=== PATIENT | female | born 1985 | race Caucasian/White ===

== ENCOUNTER 2016-11-29 04:00 | Inpatient (IN) | payer OTHER ==
--- NOTE | ~2016-11-29 | PA ---
Unit #: [id number] #: [id number] Patient: SP SANTOS [id number] [facility] [address] [place] [address] [id number] I MR#: [id number] NAME: SP SANTOS ROOM: P183 Age: 31 Sex: F Admission Date: 11/29/2016 : 1985 Date of Assessment: 11/30/2016 Attending Physician: Kranthi Haynes M.D. Admitting Physician: Kranthi Haynes M.D. Primary Care Physician: Primary Care Physician No PSYCHIATRIC ASSESSMENT INFORMANTS The patient's reliability, fair; chart reliability, good. CHIEF COMPLAINT Suicidal ideation. HISTORY OF PRESENT ILLNESS Ms. Sp Santos is a 31-year-old female, presented with the above-mentioned complaint. The patient threatening to hurt herself, feels like hurting self, no specific plan, feeling sad and depressed, feeling of hopelessness and worthlessness. The patient has a history of previous treatment, details unknown at this time. The patient has a son 4, daughter 10. Currently, her family is taking care of the kids. The patient denied any psychotic symptom or any homicidal ideation. Sister reported that the patient told her that she wanted to blow her brains. The patient confirmed the statement. The patient reports drinking one-fifth Kathy a day and 12 beers. The patient denied any use of any street drugs. The patient needing inpatient admission at this time for psychiatric stabilization. PAST PSYCHIATRIC HISTORY Remarkable for history of previous treatment, details unknown at this time. FAMILY HISTORY AND SOCIAL HISTORY The patient has a good support system. No history of any abuse. MEDICAL HISTORY Unremarkable for any chronic medical illness. Musculoskeletal; muscle strength and tone, no atrophy or abnormal movement. Gait normal. MEDICATION HISTORY None. ALLERGIES No known drug allergies. SUBSTANCE ABUSE HISTORY The patient reported tobacco use, age of onset 9; alcohol, age of onset 11. The patient reported history of blackout. No history of any HIV, hepatitis, or withdrawal symptom. No history of any IV drug use. REVIEW OF SYSTEMS HEENT: Eyes, clear. Ears, nose, mouth, and throat; clear. Unit #: [id number] #: [id number] Patient: SP SANTOS CARDIOVASCULAR: Unremarkable. RESPIRATORY: Unremarkable. GI: Unremarkable. : Unremarkable. SKIN: Unremarkable. LYMPH NODE: Unremarkable. NEUROLOGIC: Unremarkable. ENDOCRINE: Unremarkable. HEMATOLOGIC: Unremarkable. ALLERGIC/IMMUNOLOGIC: Unremarkable. MUSCULOSKELETAL: Muscle strength and tone, no atrophy or abnormal movement. Gait normal. MENTAL STATUS EXAMINATION CONSTITUTIONAL: Measurement of vital signs; temperature 98.7, pulse 76, respirations 14, oxygen saturation 99%, and blood pressure 134/84. Height 5 feet 5 inches, weight 176 pounds. GENERAL APPEARANCE: The patient dressed casually. The patient did not show any facial deformity. MUSCULOSKELETAL: Please see above. PSYCHIATRIC EXAMINATION Description of speech; regular rate, normal volume, normal articulation, coherent. Description of thought process, goal directed. Description of association, intact. Description of abnormal psychotic thinking; the patient denied any hallucination or delusions, but mood lability, substance abuse, and depression. Description of the patient's judgment, concerning everyday activity, poor. Social situation, poor. Concerning psychiatric condition, poor. Complete mental status examination; oriented in time, place, and person. Recent and remote memory, fair. Attention span and concentration, fair. Language, able to name object and repeat phrases. Fund of knowledge, aware of current event and passive vocabulary intact. Mood and affect, sad and dysphoric. Insight and judgment, fair to poor. ASSETS AND LIABILITIES Assets; the patient is articulate and able to take care of her ADL. Liability, history of depression and substance abuse. ADMITTING DIAGNOSES Psychiatric: 1. Major depressive disorder, recurrent, F33.2, moderate to severe. 2. Alcohol use disorder, severe, F10.20. Secondary diagnosis: Deferred. Medical diagnosis: None. Stressors: Psychosocial stressors. PSYCHIATRIC PLAN AND TREATMENT GOAL 1. Advised to admit the patient on the inpatient unit. Provide safe, supportive, and structured environment. 2. Ordered labs; CBC, CMP, UA, and UDS. 3. Advised to consider medication such as Celexa and Desyrel for sleep and mood symptoms. Precaution for self-harm, detox protocol, and detox monitoring. 4. The patient to attend all the programing on the inpatient unit. Unit #: [id number] #: [id number] Patient: SP SANTOS Treatment goal to attain euthymic mood, gain insight into her problem, and learn coping skills. DISCHARGE PLAN Plan to stabilize the patient and consider followup in outpatient program. ESTIMATED LENGTH OF STAY 5 days. Dictated by... Sacha Nagel/vero TD: 12/01/2016 01:35 JOB #: [id number] PSYCHIATRIC ASSESSMENT Page 1 of 1 X Kranthi Haynes MD PSYCHIATRIC ASSESSMENT
--- NOTE | ~2016-11-29 | DS ---
Unit #: [id number] #: [id number] Patient: SP SANTOS [id number] [facility] [address] [place] [address] [id number] MR#: [id number] NAME: SP SANTOS ROOM: [facility] Age: 31 Sex: F Admission Date: 11/29/2016 : 1985 Discharge Date: 12/01/2016 Attending Physician: Kranthi Haynes M.D. Primary Care Physician: Primary Care Physician No DISCHARGE SUMMARY REASON FOR ADMISSION Suicidal ideation. DIAGNOSTIC STUDIES LABORATORY RESULTS: Unremarkable. HOSPITAL COURSE The patient was admitted to inpatient unit on 11/29/2016 and discharged on 12/01/2016. The patient was treated on the inpatient unit with group therapy, individual therapy, medication management. The patient responded well with the above modalities of treatment and medication management, Celexa and Desyrel. Subsequently, the patient was discharged with a plan to follow up in outpatient program. DISCHARGE MEDICATIONS Celexa 20 mg daily for depression, Desyrel 50 mg at bedtime for sleep. DISCHARGE DIAGNOSES Psychiatric: 1. Major depressive disorder, recurrent, moderate, F33.2. 2. Alcohol use disorder, moderate, F10.20. Secondary diagnosis: Deferred. Medical diagnosis: None. Stressors: Psychosocial stressors. DISCHARGE INSTRUCTIONS The patient to follow up in outpatient clinic as per high school social science teacher. CONDITION ON DISCHARGE The patient was pleasant and cooperative. Denied any psychotic symptom or any suicidal ideation. PROGNOSIS Guarded. DIET AND ACTIVITY As tolerated. Dictated by... Kranthi Haynes M.D. Unit #: [id number] #: [id number] Patient: SP SANTOS SZC/modl TD: 12/02/2016 01:10 JOB #: [id number] DISCHARGE SUMMARY Page 1 of 1 X Kranthi Haynes MD X DISCHARGE SUMMARY
--- NOTE | ~2016-11-29 | HP ---
Unit #: [id number] #: [id number] Patient: SP SANTOS [id number] [place] [address] [id number] MR#: [id number] NAME: SP SANTOS ROOM: P183 Age: 31 Sex: F Admission Date: 11/29/2016 : 1985 Attending Physician: Kranthi Haynes M.D. Admitting Physician: Kranthi Haynes M.D. Primary Care Physician: Primary Care Physician No HISTORY AND PHYSICAL HISTORY OF PRESENT ILLNESS The patient is a 31-year-old female admitted to [facility] on 11/29/2016 for suicidal ideations and to detox from alcohol. PAST MEDICAL HISTORY Irregular heart beat PAST SURGICAL HISTORY SOCIAL HISTORY She is unemployed. She lives with her children. She smokes one pack of cigarettes daily. Drinks 12 beers plus Jagermeister daily. FAMILY MEDICAL HISTORY Noncontributory. ALLERGIES No known drug allergies. CURRENT MEDICATIONS Patient is not on any home medications. REVIEW OF SYSTEMS CONSTITUTIONAL: No fever or chills. HEENT: Denies any sore throat, ear pain or runny nose. CARDIOVASCULAR: Denies chest pain, irregular heart rhythm or palpitations. CHEST: Denies shortness of breath or cough. No hemoptysis. GASTROINTESTINAL: Denies nausea, vomiting, diarrhea or chronic constipation. ENDOCRINE: Denies history of increased thirst or urination. No recent significant weight loss or gain. GENITOURINARY: Denies dysuria, frequency, or hematuria. SKIN: Denies any rashes. HEMATOLOGIC: Denies history of increased bleeding or bruising. MUSCULOSKELETAL: Denies any hot, swollen joints. No generalized muscle pain. NEUROLOGIC: Denies problems with vision or speech. No frequent, severe headaches. No numbness, tingling or weakness in any extremities. Denies loss of bladder or bowel control. PHYSICAL EXAM GENERAL: She is awake, alert and oriented in no acute distress. Unit #: [id number] #: [id number] Patient: SP SANTOS VITAL SIGNS: Temperature 98.1, heart rate 98, respiration 18, blood pressure 121/84. HEIGHT: 5'5". WEIGHT: 176 pounds. SKIN: Warm and dry without rash or lesion. HEENT: Normocephalic. TMs not viewed. Oral and nasal passages clear. Conjunctivae clear. PERRLA. EOMs intact. NECK: Supple without lymphadenopathy or thyromegaly. HEART: Regular rate and rhythm without murmur. LUNGS: Clear. ABDOMEN: Soft, nontender. : Not done. EXTREMITIES: No evidence of cyanosis, clubbing or edema. Moves all without focal deficit. NEUROLOGICAL: Grossly within normal limits. Cranial Nerves: II: Visual rader are intact. III, IV AND : Extraocular movements are intact. Pupils are equal, round and reactive to light. V: Facial sensation is grossly normal. VII: Facial movements and expression are normal. VIII: Auditory acuity grossly intact. IX, X: Uvula is midline. Phonation is normal. XI: Patient shrugs shoulders and turns head normally. XII: Tongue protrudes in the midline. Sensory and Motor Function: Sensory and motor sensation is grossly normal. Motor: moves all extremities well. IMPRESSION 1. Psychiatric admission 2. Alcohol abuse 3. Nicotine dependence 4. Patient reported dysrhythmia RECOMMENDATIONS Psychiatric per psychiatrist. MEDICAL: No contraindication to participate in facility activities. MEDICAL PROGNOSIS Good. MEDICAL CONDITION Stable. Dictated by... Malorie Murdock/laura TD: 11/30/2016 02:25 JOB #: [id number] Unit #: [id number] #: [id number] Patient: SP SANTOS HISTORY AND PHYSICAL Page 1 of 1 X WILIAN COATS APRN HISTORY AND PHYSICAL
--- NOTE | ~2016-11-29 | PN ---
Unit #: [id number] #: [id number] Patient: SP SANTOS [id number] [facility] [address] [place] [address] [id number] I MR#: [id number] NAME: SP SANTOS ROOM: 83 Age: 31 Sex: F Admission Date: 11/29/2016 : 1985 Attending Physician: Kranthi Haynes M.D. Admitting Physician: Kranthi Haynes M.D. Primary Care Physician: Primary Care Physician Rina ROSARIO NOTES DATE OF SERVICE: 11/30/2016 DISCUSSION Ms. Sp Santos is a 31-year-old female, seen on 11/30/2016. The patient interviewed, chart reviewed, and obtained information from nursing staff. The patient compliant and cooperative. The patient is currently on a detox protocol. Mood sad, dysphoric. Withdrawn and flat affect. The patient's vital signs; temperature 98.1, pulse 98, respiratory rate 18, blood pressure 134/84. REVIEW OF SYSTEMS Complete review of systems unremarkable. MENTAL STATUS EXAMINATION General appearance, the patient dressed casually. Attention span and concentration, fair. Oriented in time, place, and person. Mood and affect, sad, and depressed. Speech, monotone. Thought process, goal directed. The patient denied any thoughts of harming self or others, but isolative, flat affect, sad, dysphoric mood. Recent and remote memory, poor. Insight and judgment, poor. DIAGNOSES 1. Mood disorder, not otherwise specified. 2. Rule out major depressive disorder, moderate, recurrent. 3. Alcohol use disorder, moderate. ASSESSMENT/PLAN Advised to continue with current detox protocol and current medication combination of Celexa and trazodone. If needed, consider further adjustment of medication. Dictated by... Sacha Nagel/vero TD: 12/01/2016 03:43 JOB #: [id number] Unit #: [id number] #: [id number] Patient: SP SANTOS REMIBO PROGRESS NOTES Page 1 of 1 X Kranthi Haynes MD PROGRESS NOTE
[2016-11-30 09:49] LABS: BASOPHIL% 0.4 % (0-2.5); EOSINOPHIL# 0.2 X10e3 (0-0.7); EOSINOPHIL% 2.5 % (0.0-7.0); HEMATOCRIT 39.8 % (35.0-45.0); HEMOGLOBIN 13.3 gm/dL (12.0-16.0); LYMPHOCYTE# 2.9 X10e3 (1.0-3.5); LYMPHOCYTE% 32.5 % (17.0-45.0); MEAN CELL VOLUME 88.7 FL (83-96); MEAN CORPUSCULAR HEMOGLOBIN 29.6 PG (28-34); MEAN CORPUSCULAR HGB CONC 33.4 g/dL (30-36); MEAN PLATELET VOLUME 7.2 FL (6.5-11.5); MONOCYTE# 0.9 X10e3 (0-1.0); MONOCYTE% 9.5 % (3.0-12.0); NEUTROPHIL% 55.1 % (40-75); PLATELET COUNT 393 X10e3 (140-420); RED BLOOD COUNT 4.49 X10e (3.90-5.30); RED CELL DISTRIBUTION WIDTH 13.5 % (11.0-15.5)
[2016-11-30 09:55] LABS: DIFF IND NO
[2016-11-30 10:49] LABS: ALBUMIN SERUM 3.5 g/dL (3.5-5.0); BILIRUBIN,TOTAL 0.5 mg/dL (0.2-2.0); CALCIUM SERUM 9.1 mg/dL (8.4-10.2); CREATININE SERUM 0.7 mg/dL (0.6-1.4); GLOM FILT RATE Estimated 114.6 mL/min (>60); POTASSIUM 3.6 mmol/L (3.5-5.1); PROTEIN TOTAL SERUM 6.3 g/dL (6.0-8.3)
[2016-11-30 12:54] LABS: URINE APPEARANCE TURBID; URINE BLOOD NEG (NEG); URINE COLOR ORANGE; URINE GLUCOSE NEG (NEG); URINE KETONE NEG (NEG); URINE LEUKOCYTE ESTERASE NEG (NEG); URINE NITRATE NEG (NEG); URINE PROTEIN NEG (NEG); URINE SPECIFIC GRAVITY 1.031 (1.003-1.035)
[2016-11-30 13:01] LABS: URINE BILIRUBIN NEG (NEG)
[2016-11-30 13:14] LABS: AMPHETAMINE NEG (NEG); BARBITURATES NEG (NEG); BENZODIAZEPINES NEG (NEG); COCAINE NEG (NEG); MARIJUANA NEG (NEG); OPIATES NEG (NEG); TRICYCLIC ANTIDEPRESSANTS NEG (NEG); U METHADONE NEG (NEG)
== END 2016-12-01 09:40 | disposition home or self-care (01) | DRG 885 ==
LOC: P1E 11:03
PROVIDERS: Psychiatry & Neurology Psychiatry
DX: F33.2 Major depressive disorder, recurrent severe without psychotic features (principal); R45.851 Suicidal ideations; F17.210 Nicotine dependence, cigarettes, uncomplicated; F10.20 Alcohol dependence, uncomplicated
CPT/HCPCS: 80053; 80307; 81003; 84703; 85025; 86592